=== PATIENT | female | born 1995 | race American Indian/Alaskan Native ===

== ENCOUNTER 2016-09-26 22:24 | Emergency (ER) | payer OTHER, MEDICAID ==
[2016-09-26 22:56] VITALS: BP 110/72
[2016-09-26] MEDS ORDERED: TYLENOL PO ONE (22:57)
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
== END 2016-09-27 03:00 | disposition home or self-care (01) ==
LOC: ED 22:24
DX: O9A.211 Injury, poisoning and certain other consequences of external causes complicating pregnancy, first trimester (principal); M54.2 Cervicalgia; M54.9 Dorsalgia, unspecified; I10 Essential (primary) hypertension; Z3A.08 8 weeks gestation of pregnancy; V49.49XA Driver injured in collision with other motor vehicles in traffic accident, initial encounter; Y93.9 Activity, unspecified; Y92.9 Unspecified place or not applicable; Y99.9 Unspecified external cause status
CPT/HCPCS: 36415; 72020; 76801; 76817; 84703